=== PATIENT | male | born 2000 | race African-American/Black ===

== ENCOUNTER 2024-09-22 09:30 | Emergency (ER) | payer BC, OTHER ==
[~2024-09-22] VITALS: Ht 182.9 cm; Wt 97.5 kg
[2024-09-22] MEDS ORDERED: INSU100V11 (09:46)
[2024-09-22] MEDS: IV NORMAL SALINE 1000 ML BAG IV ONE (09:57)
[2024-09-22] MEDS ORDERED: ONDANSETRON 4 MG/2 ML VIAL ONE (09:58)
[2024-09-22] MEDS: ONDANSETRON 4 MG/2 ML VIAL IV ONE (10:01)
[2024-09-22 10:12] LABS: BASOPHILS # (AUTO) 0.1 K/UL (0.0-0.2); BASOPHILS % (AUTO) 0.4 % (0.0-2.0); CALCIUM 9.6 mg/dL (8.5-10.1); CREATININE 0.9 mg/dL (0.6-1.3); HEMATOCRIT 50.3 % (36.7-47.1); HEMOGLOBIN 17.5 g/dL (12.5-16.3); LYMPHOCYTES # (AUTO) 1.6 K/uL (0.8-4.8); LYMPHOCYTES % (AUTO) 14.2 % (20.5-51.5); MEAN CORPUSCULAR HEMOGLOBIN 28.5 uug (23.8-33.4); MEAN CORPUSCULAR HGB CONC 35 g/dL (32.5-36.3); MONOCYTES # (AUTO) 0.8 K/uL (0.1-1.30); MONOCYTES % (AUTO) 6.8 % (0.0-11.0); NEUTROPHILS # (AUTO) 8.9 K/uL (1.8-8.9); NEUTROPHILS % (AUTO) 78.6 % (38.5-71.5); PLATELET COUNT (AUTO) 315 K/uL (152-348); POTASSIUM 3.6 mmol/L (3.5-5.1); RED BLOOD CELL COUNT(AUTO) 6.14 MIL/uL (4.06-5.63); RED CELL DISTRIBUTION WIDTH 13.2 % (12.1-16.2); WHITE BLOOD COUNT (AUTO) 11.3 K/uL (3.6-10.2)
[2024-09-22 10:15] LABS: ALBUMIN 4.9 g/dL (3.4-5.0); BILIRUBIN,DIRECT 0.3 mg/dL (0.0-0.2); BILIRUBIN,TOTAL 1.2 mg/dL (0.2-1.0); TOTAL PROTEIN, SERUM 8.6 g/dL (6.4-8.2)
[2024-09-22 10:16] LABS: DIFFERENTIAL COMMENT 1
[2024-09-22 10:41] LABS: SITE, VBG VBG - N/A; VBG AaDO2 78.9 mmHg; VBG HCO3 25.6 mmol/L (22.0-29.0); VBG MetHb 0.4 % (0.5-1.5); VBG O2HB 76.7 % (0-79.0); VBG PCO2 40.7 mmHg (38.0-54.0); VBG PH 7.416 (7.320-7.430); VBG PO2 42.4 mmHg (23.0-48.0); VBG TOTAL HEMOGLOBIN 17.4 G/dL (13.5-17.5)
[2024-09-22] MEDS ORDERED: INSULIN REGULAR, HUMAN 1000 UNIT/10 ML VIAL ONE (10:50)
[2024-09-22] MEDS: INSULIN REGULAR, HUMAN 1000 UNIT/10 ML VIAL SQ ONE (10:53)
[2024-09-22] MEDS ORDERED: INSU3INS8 INJ (11:46)
[2024-09-22] MEDS ORDERED: ONDA4TAB5 PO (11:47)
[2024-09-22 11:59] VITALS: BP 144/91; O2SAT 98
== END 2024-09-22 12:00 | disposition home or self-care (01) ==
LOC: ER 09:30
DX: R10.9 Unspecified abdominal pain (principal); R19.7 Diarrhea, unspecified; R11.2 Nausea with vomiting, unspecified; E10.65 Type 1 diabetes mellitus with hyperglycemia; F17.200 Nicotine dependence, unspecified, uncomplicated
CPT/HCPCS: 99284; 96374; 96361; 80076; 80048; 82009; 82962 ×3; 83690; 85025; 82803; 96372; 36600; J2405; J1815; J7040; A4606; A4663